=== PATIENT | female | born 1945 | race Two or more races ===

== ENCOUNTER 2017-11-24 03:21 | Emergency (ER) | payer MEDICARE, OTHER ==
[~2017-11-24] VITALS: Ht 154.9 cm; Wt 72.6 kg
[2017-11-24] MEDS ORDERED: HYDROMORPHONE 1 MG/1 ML DISP.SYRIN IM ONE (04:00)
[2017-11-24] MEDS ORDERED: ONDANSETRON 4 MG TAB.RAPDIS SL ONE (04:00)
[2017-11-24] MEDS ORDERED: ONDANSETRON HCL/PF 4 MG/2 ML VIAL ONE (04:03)
[2017-11-24] MEDS ORDERED: HYDROMORPHONE 1 MG/1 ML DISP.SYRIN ONE (04:04)
[2017-11-24] MEDS ORDERED: ONDANSETRON 4 MG TAB.RAPDIS ONE (04:06)
--- NOTE | 2017-11-24 04:56 | NUR ---
PT CAME FROM C/O 10/10 L HIP PAIN RADATING TO KNOW. DISTAL SNESATION INTACT, NO TRAUMA TO LEG. PT A/O X 4, BREATHING UNLABORED, ABLE TO AMBULATE WITHOUT ASSITANCE
[2017-11-24 04:59] VITALS: BP 136/81
== END 2017-11-24 05:00 | disposition home or self-care (01) ==
LOC: ER 03:24
DX: M25.552 Pain in left hip (principal); M16.10 Unilateral primary osteoarthritis, unspecified hip; G89.29 Other chronic pain; I10 Essential (primary) hypertension; Z96.642 Presence of left artificial hip joint
CPT/HCPCS: 73501; 96372; 99284; A4606; J1170; Q0162; 73020; J2405; Z7610